=== PATIENT | female | born 1960 | race Caucasian/White ===

== ENCOUNTER 2017-06-15 15:54 | Emergency (ER) | payer OTHER ==
[2017-06-15 16:01] VITALS: BP 154/92
--- NOTE | 2017-06-15 16:30 | UC ---
Abdominal Pain Female HPI - HPI Summary HPI Summary: Patient presents with complaints of one day onset dysuria, and abdominal pressure in the suprapubic area. She denies fever, chills, or flank pain. She states the symptoms came on suddenly this morning. - History of Current Complaint Chief Complaint: UCGU Stated Complaint: UTI Time Seen by Provider: 06/15/17 15:58 Hx Obtained From: Patient ?: No Onset/Duration: Sudden Onset Timing: Constant Severity Initially: Mild Severity Currently: Mild Location: Suprapubic Radiates: No Character: Cramping Aggravating Factor(s): Other: - urination Alleviating Factor(s): Nothing Associated Signs and Symptoms: Positive: Negative - Risk Factors Ectopic Risk Factor: Negative Allergies/Adverse Reactions: Allergies Allergy/AdvReac Type Severity Reaction Status Date / Time No Known Allergies Allergy Verified 06/15/17 15:57 PMH/Surg Hx/FS Hx/Imm Hx Previously Healthy: Yes - Surgical History Surgical History: Yes Surgery Procedure, Year, and Place: total hysterectomy; 2 c-sections - Family History Known Family History: Positive: Cardiac Disease, Hypertension, Other - dementia rheumatoid arthritis - Social History Occupation: Employed Full-time Lives: Alone Alcohol Use: Rare Substance Use Type: None Smoking Status (MU): Never Smoked Tobacco Review of Systems Genitourinary: Dysuria, Frequency, Urgency All Other Systems Reviewed And Are Negative: Yes Physical Exam Triage Information Reviewed: Yes Appearance: Well-Appearing Vital Signs: Initial Vital Signs Temp 98 F 06/15/17 15:58 Pulse 94 06/15/17 15:58 Resp 20 06/15/17 15:58 BP 154/92 06/15/17 15:58 Pulse Ox 99 06/15/17 15:58 Vital Signs Reviewed: Yes Eye Exam: Normal ENT Exam: Normal Neck exam: Normal Respiratory Exam: Normal Cardiovascular Exam: Normal Abdominal Exam: Normal Skin Exam: Normal Abd Pain Female Course/Dx - Course Course Of Treatment: Patient presents with complaints of dysuria, ua was positive for infection. she was given rx for macrobid and pyridium. At the time of discharge she had a nontoxic appearance, normal vs, and was afebile. - Differential Dx/Diagnosis Differential Diagnosis: Urinary Tract Infection Provider Diagnoses: uti Discharge - Discharge Plan Condition: Stable Disposition: HOME Prescriptions: Nitrofurantoin Monohyd Macro [Macrobid] 100 mg PO BID #20 cap Phenazopyridine 200 mg (NF) [Pyridium 200 MG tab *] 200 mg PO TID PRN #6 tab PRN Reason: dysuria Patient Education Materials: Phenazopyridine (By mouth), Urinary Tract Infection in Women (ED) Referrals: Kelsi Nielsen MD [Primary Care Provider] -
== END 2017-06-15 16:30 | disposition home or self-care (01) ==
LOC: UCEAST 15:54
DX: N39.0 Urinary tract infection, site not specified (principal); B96.20 Unspecified Escherichia coli [E. coli] as the cause of diseases classified elsewhere; Z90.710 Acquired absence of both cervix and uterus
CPT/HCPCS: 81003; 87077; 87086; 87186; 99212; G0463

== ENCOUNTER 2017-09-01 09:24 | Emergency (ER) | payer OTHER ==
[2017-09-01 10:09] VITALS: BP 144/80
--- NOTE | 2017-09-01 10:13 | UC ---
Respiratory Complaint HPI - HPI Summary HPI Summary: Pt presents with sinus congestion and cough that started 5 days ago. Today started with wheezing. She tells me that about 5 days ago she developed sinus congestion/pain/pressure and a dry cough. She took OTC mucinex without relief. Today she began to feel a wheeze in her chest with she coughs or takes a deep breath. She says the cold makes her symptoms worse. Denies fever, chills, SOB, chest pain, abdominal pain, N/V/D/C - History of Current Complaint Chief Complaint: UCRespiratory Stated Complaint: UPPER RESPIRATORY Time Seen by Provider: 09/01/17 09:58 Hx Obtained From: Patient Onset/Duration: Gradual Onset Timing: Constant Severity Initially: Mild Severity Currently: Moderate Character: Cough: Nonproductive Aggravating Factors: Deep Breaths Associated Signs And Symptoms: Positive: Negative - Allergies/Home Medications Allergies/Adverse Reactions: Allergies Allergy/AdvReac Type Severity Reaction Status Date / Time No Known Allergies Allergy Verified 09/01/17 10:09 Home Medications: Home Medications Dextromethorphan-Guaifenesin [Mucinex Fast-Max Dm Max 20-400 mg/20Ml] 1 tab PO Q6H PRN 09/01/17 [History Confirmed 09/01/17] Metoprolol Succinate [Metoprolol Succinate ER] 25 mg PO DAILY 09/01/17 [History Confirmed 09/01/17] PMH/Surg Hx/FS Hx/Imm Hx - Additional Past Medical History Additional PMH: Rheumatoid Arthritis Previously Healthy: Yes Cardiovascular History: Hypertension - Surgical History Surgical History: Yes Surgery Procedure, Year, and Place: total hysterectomy; 2 c-sections - Family History Known Family History: Positive: Cardiac Disease, Hypertension, Other - dementia rheumatoid arthritis - Social History Occupation: Employed Full-time Lives: With Family Alcohol Use: Occasionally Substance Use Type: None Smoking Status (MU): Never Smoked Tobacco Review of Systems Constitutional: Negative Skin: Negative Eyes: Negative ENT: Nasal Discharge, Sinus Congestion, Sinus Pain/Tenderness Respiratory: Cough Cardiovascular: Negative Gastrointestinal: Negative Neurological: Negative Psychological: Negative All Other Systems Reviewed And Are Negative: Yes Physical Exam Triage Information Reviewed: Yes Appearance: Well-Appearing, Well-Nourished Vital Signs: Initial Vital Signs Temp 98.4 F 09/01/17 10:03 Pulse 99 09/01/17 10:03 Resp 18 09/01/17 10:03 BP 144/80 09/01/17 10:03 Pulse Ox 100 09/01/17 10:03 Vital Signs Reviewed: Yes Eyes: Positive: Conjunctiva Clear. Negative: Conjunctiva Inflamed, Discharge ENT: Positive: Hearing grossly normal, Pharynx normal, Nasal congestion, Nasal drainage, TMs normal, Sinus tenderness, Uvula midline. Negative: Pharyngeal erythema, TM bulging, TM dull, TM red, Tonsillar swelling, Tonsillar exudate Neck: Positive: Supple, Nontender, No Lymphadenopathy Respiratory: Positive: Chest non-tender, No respiratory distress, No accessory muscle use, Wheezing - Throughout. Negative: Crackles, Rhonchi Cardiovascular: Positive: RRR, No Murmur, Pulses Normal Neurological: Positive: Alert Psychological: Positive: Age Appropriate Behavior Skin: Negative: rashes UC Diagnostic Evaluation - Laboratory O2 Sat by Pulse Oximetry: 100 Respiratory Course/Dx - Course Course Of Treatment: Sinusitis - Azithromycin. Bronchitis - Albuterol - Differential Dx/Diagnosis Differential Diagnosis/HQI/PQRI: Asthma, Bronchitis, CHF, Lower Resp Infection, Sinusitis Provider Diagnoses: Sinusitis. Bronchitis Discharge - Discharge Plan Condition: Stable Disposition: HOME Prescriptions: Albuterol HFA INHALER* [Ventolin HFA Inhaler*] 1 - 2 puff INH Q6H PRN #1 mdi PRN Reason: Cough Azithromycin TAB* [Zithromax TAB (Z-DENA) 250 mg #6 tabs] 2 tab PO .TODAY, THEN 1 DAILY #1 dena Patient Education Materials: Sinusitis (ED), Acute Bronchitis (ED) Forms: *Work Release Referrals: Kelsi Nielsen MD [Primary Care Provider] - Additional Instructions: If you develop a fever, SOB, chest pain, new or worsening symptoms - please call your PCP or go to the ED. Your blood pressure was high at todays visit. Please see your primary provider within 4 weeks for recheck and re-evaluation.
== END 2017-09-01 10:32 | disposition home or self-care (01) ==
LOC: UCCORT 09:24
DX: J32.9 Chronic sinusitis, unspecified (principal); J40 Bronchitis, not specified as acute or chronic; I10 Essential (primary) hypertension; M06.9 Rheumatoid arthritis, unspecified
CPT/HCPCS: 99212; G0463

== ENCOUNTER 2018-12-19 16:56 | Emergency (ER) | payer OTHER ==
--- NOTE | 2018-12-19 17:18 | UC ---
Throat Pain/Nasal [place] HPI - HPI Summary HPI Summary: 58-year-old woman comes in with upper respiratory tract infection symptoms for 2 -3 days. Patient has a runny nose. There is some yellow rhinorrhea. No wheezing or chest congestion. Patient is not tried any zhgh-vme-lcdxics medications. She's potentially immunocompromised due to her rheumatoid arthritis medications. - History of Current Complaint Chief Complaint: UCGeneralIllness Stated Complaint: SINUS COMPLAINT Time Seen by Provider: 12/19/18 17:01 Pain Intensity: 4 - Allergies/Home Medications Allergies/Adverse Reactions: Allergies Allergy/AdvReac Type Severity Reaction Status Date / Time No Known Allergies Allergy Verified 12/19/18 17:10 PMH/Surg Hx/FS Hx/Imm Hx Previously Healthy: Yes - RA Endocrine History: Hypothyroidism Cardiovascular History: Hypertension - Surgical History Surgical History: Yes Surgery Procedure, Year, and Place: total hysterectomy; 2 c-sections - Family History Known Family History: Positive: Cardiac Disease, Hypertension, Other - dementia rheumatoid arthritis - Social History Alcohol Use: Rare Substance Use Type: None Smoking Status (MU): Never Smoked Tobacco Review of Systems All Other Systems Reviewed And Are Negative: Yes Constitutional: Positive: Chills Skin: Positive: Negative Eyes: Positive: Negative ENT: Positive: Sore Throat, Nasal Discharge, Sinus Congestion Respiratory: Positive: Negative Cardiovascular: Positive: Negative Gastrointestinal: Positive: Negative Motor: Positive: Negative Neurovascular: Positive: Negative Musculoskeletal: Positive: Negative Neurological: Positive: Negative Psychological: Positive: Negative Is Patient Immunocompromised?: Yes - RA medications Physical Exam Triage Information Reviewed: Yes Appearance: No Pain Distress, Well-Nourished, Ill-Appearing - mild Vital Signs: Initial Vital Signs Temp 97.2 F 12/19/18 17:03 Pulse 99 12/19/18 17:03 Resp 20 12/19/18 17:03 BP 000/00 12/19/18 17:03 Pulse Ox 95 12/19/18 17:03 Vital Signs Reviewed: Yes Eye Exam: Normal Eyes: Positive: Conjunctiva Clear ENT: Positive: Pharyngeal erythema, Nasal congestion, Nasal drainage, TMs normal Neck exam: Normal Neck: Positive: Supple Respiratory: Positive: Lungs clear, Normal breath sounds, No respiratory distress Cardiovascular: Positive: RRR Musculoskeletal Exam: Normal Musculoskeletal: Positive: Strength Intact, ROM Intact Neurological Exam: Normal Neurological: Positive: Alert, Muscle Tone Normal Psychological Exam: Normal Psychological: Positive: Age Appropriate Behavior Skin Exam: Normal Throat Pain/Nasal Course/Dx - Course Course Of Treatment: The cause of the patient potentially being immunocompromised because of her rheumatoid arthritis medications the patient prefers to be on antibiotic at this time. - Differential Dx/Diagnosis Provider Diagnosis: Upper respiratory infection Discharge - Sign-Out/Discharge Documenting (check all that apply): Patient Departure All imaging exams completed and their final reports reviewed: No Studies - Discharge Plan Condition: Stable Disposition: HOME Prescriptions: Azithromyxin DENA (NF) [Z-Dena (Zithromax) 250 mg tabs #6] 2 tab PO .TODAY, THEN 1 DAILY #6 tab Patient Education Materials: Upper Respiratory Infection (ED) Referrals: Kelsi Nielsen MD [Primary Care Provider] - Additional Instructions: FOLLOW UP WITH YOUR DOCTOR IF NOT COMPLETELY IMPROVED. GET RECHECKED FOR ANY WORSENING OF YOUR CONDITION OR QUESTIONS OR CONCERNS. - Billing Disposition and Condition Condition: STABLE Disposition: Home
[2018-12-19 17:29] VITALS: BP 162/88
== END 2018-12-19 17:32 | disposition home or self-care (01) ==
LOC: UCEAST 16:56
DX: J06.9 Acute upper respiratory infection, unspecified (principal); I10 Essential (primary) hypertension
CPT/HCPCS: 99212; G0463

== ENCOUNTER 2019-06-16 07:16 | Emergency (ER) | payer OTHER ==
--- OUTSIDE RECORDS SUMMARY | 2019-06-16 07:21 | XMS REPORT | Continuity of Care Document ---
:1960 External Reference #:[id number] Author Name Iesha Gaffney NP Address [address] [facility] [place] [address] Care Team Providers Name Role Phone Kelsi Nielsen M.D. Care Team Information Certified Medical Biller Unavailable Kelsi Nielsen M.D. Primary Care Physician Unavailable Payers Date Identification Numbers Payment Provider Subscriber Effective: 2014 Policy Number: [id number] [facility] [employer] [employer] Number: [id number] [id number] PayID: [id number] [place] [address] Problems Active Problems Provider Date Rheumatoid arthritis Kelsi Nielsen M.D. Onset: 08/05/2015 Essential hypertension Kelsi Nielsen M.D. Onset: 08/11/2015 Type 2 diabetes mellitus Kelsi Nielsen M.D. Onset: 08/11/2015 Hypothyroidism Kelsi Nielsen M.D. Onset: 09/25/2016 Hyperlipidemia Kelsi Nielsen M.D. Onset: 09/25/2016 Family History Date Family Member(s) Observation Comments Father Alzheimer's Disease : (age 2008 Years) Father due to [place] Father Rheumatoid Arthritis Father Prostate Cancer Mother Diabetes Mellitus, II : (age 79 Years) Mother due to Liver Disease Children 2 Maternal Aunts Colon Cancer Social History Type Date Description Comments Sex Unknown Marital Status Legal Status: Lives With Daughter Lives With Spouse Diet Patient is on a diabetic diet Occupation [place] [employer] Tobacco Use Start: Unknown Never Smoked Cigarettes ETOH Use Occasional Tobacco Use Start: Unknown Nonsmoker Smoking Status Reviewed: 09/22/17 Nonsmoker Exercise Exercises regularly treadmill 3x week Type/Frequency Allergies, Adverse Reactions, Alerts Description No Known Drug Allergies Medications Active Medications SIG Qnty Indications Ordering Date Provider Metformin HCL ER start with 1 60tabs Iesha Hernadez 04/19/2019 500mg Tablets tab daily for 1 SHADY Gaffney ER 24HR week then 1 tab twice a day ongoing Blood Glucose Monitoring One unit for 1units E11.9 Sebastian AMarco A 03/20/2019 System lifetime Maureen Boswell W/Device Kit diagnosis of diabetes E11.9 Freestyle Insulinx Blood For lifetime 30units Sebastian A. 03/20/2019 Glucose Test Strips diagnosis of Maureen Boswell Strips diabetes E11.9 Freestyle Insulinx Blood Include test 30units Sebastian A. 03/20/2019 Glucose Monitoring System strips and Maureen Boswell lancets for use W/Device Kit once daily for lifetime diagnosis of diabetes, E11.9 Accu-Chek Multiclix For use once 102units Sebastian AMarco A 03/20/2019 Lancets daily for Maureen Boswell Misc lifetime diagnosis of E11.9 Freestyle Lancets For use once 30units Sebastian AMarco A 03/20/2019 Misc daily for Maureen Boswell lifetime diagnosis of diabetes E11.9 Freestyle Insulinx Blood For use once 30units Sebastian AMarco A 03/20/2019 Glucose Test Strips daily for Maureen Boswell Strips lifetime diagnosis of diabetes, E11.9 Metoprolol Succinate ER 1 by mouth 30tabs I10 Kelsi Nielsen, 06/14/2017 50mg every day M.D. Tablets ER 24HR Levothyroxine Sodium 1 by mouth 30tabs E03.9 Valerie Lee, 08/12/2015 75mcg every day [employer] Tablets Folic Acid 1 by mouth 30tabs Valerie Lee, 08/12/2015 1mg Tablets every day [employer] Methotrexate 5 tab by mouth Kelsi Loris, 08/12/2015 2.5mg Tablets every week M.D. Hydrochlorothiazide 1 by mouth 90tabs I10 Inés Castelan 25mg every day SHADY Hardy Tablets History Medications Synjardy XR Take 1 tablet 30tabs Kelsi Nielsen, 03/28/2019 - 12.5-1000mg Tablets daily. M.D. 04/19/2019 ER 24HR Qtern Patient will 30tabs Sebastian Boswell, 03/21/2019 - 10-5mg Tablets present M.D. 03/28/2019 savings coupon. Take 1 tablet daily. Anthonyga start 1 tablet 30tabs Sebastian Boswell, 03/20/2019 - 5mg Tablets in the morning M.D. 03/20/2019 daily. Kixiga Start one 30tabs E11.9 Sebastian Boswell, 03/20/2019 - 10mg Tablets tablet once M.D. 03/21/2019 daily in the morning. Metformin HCL take 2 tablet 90tabs E11.9 Valerie Rosa, 03/24/2018 - 500mg Tablets by mouth in [facility] 03/20/2019 the morning and 2 po in the evening Metformin HCL 1 by mouth 180tabs Lucas 09/25/2016 - 1000mg Tablets once a day [facility] 03/24/2018 Hydroxychloroquine 1 tab qd 90tabs [facility], 08/12/2015 - Sulfate M.D. 09/25/2016 200mg Tablets Atenolol 1 by mouth 90tabs [facility], 08/12/2015 - 50mg Tablets every day M.D. 06/14/2017 [facility] HCL [facility] - 500mg Tablets twice a day [facility] 09/25/2016 Immunizations CPT Code Status Date Vaccine Lot # [id number] Given 07/10/2018 Influenza Vac, Quadrivalent, [place] [id number] Given 09/21/2017 Pneumococcal Conjugate Vacc-13 [id number] Given 03/24/2016 Zostivax [id number] Given 08/12/2015 Tdap Tetanus, W Pertussis [id number] Vital Signs Date Vital Result Comment 04/19/2019 5:11pm BP Systolic 130 mmHg BP Diastolic 88 mmHg Heart Rate 90 /min Body Temperature 97.9 F Height 62.5 inches 5'2.50" Weight 209.00 lb BMI (Body Mass Index) 37.6 kg/m2 03/20/2019 9:34am BP Systolic 136 mmHg BP Diastolic 86 mmHg Heart Rate 96 /min Body Temperature 96.4 F Height 62.5 inches 5'2.50" Weight 216.00 lb BMI (Body Mass Index) 38.9 kg/m2 03/24/2018 9:42am BP Systolic 130 mmHg BP Diastolic 80 mmHg Heart Rate 76 /min Body Temperature 97.7 F Respiratory Rate 18 /min Height 62.5 inches 5'2.50" Weight 216.00 lb BMI (Body Mass Index) 38.9 kg/m2 09/22/2017 9:23am BP Systolic 126 mmHg BP Diastolic 80 mmHg Heart Rate 80 /min Body Temperature 98.2 F Respiratory Rate 16 /min Height 62.5 inches 5'2.50" Weight 211.00 lb BMI (Body Mass Index) 38.0 kg/m2 12/25/2016 8:53am BP Systolic 132 mmHg BP Diastolic 80 mmHg Heart Rate 72 /min Respiratory Rate 20 /min Height 62.5 inches 5'2.50" Weight 203.38 lb BMI (Body Mass Index) 36.6 kg/m2 09/25/2016 9:51am BP Systolic 140 mmHg BP Diastolic 90 mmHg Heart Rate 84 /min Body Temperature 97.7 F Height 62.5 inches 5'2.50" Weight 210.50 lb BMI (Body Mass Index) 37.9 kg/m2 02/04/2016 3:53pm BP Systolic 130 mmHg BP Diastolic 84 mmHg Heart Rate 88 /min Body Temperature 98.2 F Respiratory Rate 16 /min Height 62.5 inches 5'2.50" Weight 215.00 lb BMI (Body Mass Index) 38.7 kg/m2 08/12/2015 4:13pm BP Systolic 128 mmHg BP Diastolic 88 mmHg Heart Rate 88 /min Body Temperature 98.6 F Height 62.5 inches 5'2.50" Weight 216.00 lb BMI (Body Mass Index) 38.9 kg/m2 Results Test Date Facility Test Result H/L Range Note Laboratory test 03/20/2019 [facility] Medicine Glucose 214 mg/dL High 70-105 finding (607)- - Fingerstick (Fma) Hemoglobin A1c (Fma) 9.7 % High 4.1-5.7 Lipid Profile 03/20/2019 [facility](a) Cholesterol 228 mg/dL High 120-200 Triglycerides 192 mg/dL 30-200 HDL Cholesterol 56 mg/dL 30-85 LDL (Calculated) 134 CALC High 0-129 VLDL Cholesterol 38 mg/dL 0-50 HDL Risk Factor 4.1 CALC 0.0-4.4 Laboratory test finding 03/09/2019 [facility] Erythrocyte Sed Rate 36 mm/Hr High 0-29 1 Comp Metabolic Panel 03/09/2019 [facility] Sodium 137 mmol/L N 135-145 Potassium 3.8 mmol/L N 3.5-5.0 Chloride 99 mmol/L Low 101-111 Co2 Carbon Dioxide 32 mmol/L N 22-32 Anion Gap 6 mmol/L N 2-11 Calcium 9.7 mg/dL N 8.6-10.3 Albumin 4.0 g/dL N 3.2-5.2 Total Bilirubin 0.50 mg/dL N 0.2-1.0 Glucose 302 mg/dL High 70-100 Blood Urea Nitrogen 15 mg/dL N 6-24 Creatinine 0.69 mg/dL N 0.51-0.95 BUN/Creatinine Ratio 21.7 High 8-20 Total Protein 7.5 g/dL N 6.4-8.9 Globulin 3.5 g/dL N 2-4 Albumin/Globulin Ratio 1.1 N 1-3 Alkaline Phosphatase 84 U/L N 34-104 Alt 23 U/L N 7-52 Ast 21 U/L N 13-39 Egfr Non- 87.7 >60 Egfr 106.1 >60 2 CBC Auto Diff 03/09/2019 [facility] White Blood Count 9.6 10^3/uL N 3.5-10.8 Red Blood Count 4.78 10^6/uL N 3.70-4.87 Hemoglobin 14.8 g/dL N 12.0-16.0 Hematocrit 44 % N 35-47 Mean Corpuscular Volume 91 fL N 80-97 Mean Corpuscular Hemoglobin 31 pg N 27-31 Mean Corpuscular HGB Conc 34 g/dL N 31-36 Red Cell Distribution Width 14 % N 10-15 Platelet Count 205 10^3/uL N 150-450 Mean Platelet Volume 9.8 fL N 7.4-10.4 Abs Neutrophils 5.9 10^3/uL N 1.5-7.7 Abs Lymphocytes 2.1 10^3/uL N 1.0-4.8 Abs Monocytes 1.3 10^3/uL High 0-0.8 Abs Eosinophils 0.3 10^3/uL N 0-0.6 Abs Basophils 0.1 10^3/uL N 0-0.2 Abs Nucleated RBC 0.0 10^3/uL Granulocyte % 60.9 % Lymphocyte % 22.3 % Monocyte % 13.2 % Eosinophil % 2.9 % Basophil % 0.7 % Nucleated Red Blood Cells % 0.2 Laboratory test 03/09/2019 [facility] C Reactive Protein 22.57 mg/L High <8.01 3 finding Laboratory test 04/06/2018 [facility] C-Reactive 19.7 mg/L High 0.0-4.[address] Protein, [place] [address] (607)- - Laboratory test 04/06/2018 [facility] Sedimentation Rate 13mm finding (607)- - Comprehensive 04/06/2018 [facility](fma) Sodium 138 mEq/L 134-149 Metabolic Prof Potassium 3.6 mEq/L 3.6-5.5 Chloride 101 mEq/L 94-112 Carbon Dioxide 25 mEq/L 21-32 Glucose 161 mg/dL High 70-105 BUN 14 mg/dL 6-26 Creatinine 0.7 mg/dL 0.6-1.4 BUN/Creat Ratio 20.0 CALC 8.0-36.0 Calcium 9.4 mg/dL 8.6-10.2 Total Protein 8.3 g/dL 6.4-8.3 Albumin 4.4 g/dL 3.8-5.5 Globulin 3.9 g/dL 2.0-4.8 A/G Ratio 1.1 CALC 0.6-2.3 Alk. Phosphatase 71 U/L 30-110 Alt (SGPT) 32 U/L 7-35 Ast (Sgot) 33 U/L 5-34 Total Bilirubin 0.7 mg/dL 0.2-1.3 GFR Non- >60 ml/min/1.73m^ >=60 GFR >60 ml/min/1.73m^ >=60 CBC Electronic Fma 04/06/2018 [facility](fma) WBC 9.3 x10^3/UL 4.0- 10.0 RBC 4.87 x10^6/UL 3.93-6.00 HGB 15.0 g/dL 12.0-17.0 HCT 43 % 35-50 MCV 88.9 fL 80.0-95.0 MCH 30.8 pg 25.6-32.2 MCHC 34.6 g/dL 32.2-36.0 RDW-CV 13.1 % 11.6-14.4 PLT 202 x10^3/UL 163-400 MPV 11.8 fL 9.4-12.4 Della# 5.71 x10^3/UL 1.56-6.13 Lymph# 2.23 x10^3/UL 1.18-3.74 Gladwin# 1.08 x10^3/UL High 0.24-0.82 Eos # 0.2 x10^3/UL 0.0-0.5 Baso # 0.04 x10^3/UL 0.01-0.08 Della% 61.3 % 34.0-70.0 Lymph % 23.9 % 20.0-52.0 Gladwin% 11.6 % 5.0-12.0 Eos% 2.6 % 0.7-7.0 Baso% 0.4 % 0.1-1.2 Lipid Profile 12/07/2017 [facility](a) Cholesterol 225 mg/dL High 120-200 Triglycerides 189 mg/dL 30-200 HDL Cholesterol 61 mg/dL 30-85 LDL (Calculated) 126 CALC 0-129 VLDL Cholesterol 38 mg/dL 0-50 HDL Risk Factor 3.7 CALC 0.0-4.4 Laboratory test finding 12/07/2017 [facility](a) TSH 3.39 mIU/L 0.50-6.00 Free T4 1.52 ng/dL 0.75-1.54 CBC Electronic Fma 12/07/2017 [facility]) WBC 7.6 x10^3/UL 4.0- 10.0 RBC 5.02 x10^6/UL 3.93-6.00 HGB 15.3 g/dL 12.0-17.0 HCT 45 % 35-50 MCV 90.0 fL 80.0-95.0 MCH 30.5 pg 25.6-32.2 MCHC 33.8 g/dL 32.2-36.0 RDW-CV 13.0 % 11.6-14.4 PLT 208 x10^3/UL 163-400 MPV 10.8 fL 9.4-12.4 Della# 5.01 x10^3/UL 1.56-6.13 Lymph# 1.50 x10^3/UL 1.18-3.74 Gladwin# 0.85 x10^3/UL High 0.24-0.82 Eos # 0.2 x10^3/UL 0.0-0.5 Baso # 0.03 x10^3/UL 0.01-0.08 Della% 65.9 % 34.0-70.0 Lymph % 19.7 % Low 20.0-52.0 Gladwin% 11.2 % 5.0-12.0 Eos% 2.5 % 0.7-7.0 Baso% 0.4 % 0.1-1.2 Laboratory test 12/07/2017 [facility] C-Reactive 19.9 mg/L High 0.0-4.9 finding [address] [facility] Protein, [place] [address] (607)- - Laboratory test 12/07/2017 [facility] Hemoglobin A1c 7.5 % High 4.1- 5.7 finding (607)- - (Fma) Microalb, Random (Fma/CMC/CTX) 18.9 mg/L 0.5-37 Ua - Micro (Fma) 12/07/2017 [facility] Appearance CLEAR (607)- - Color YELLOW Glucose, Urine (Fma/CMC/CTX) NEG Bilirubin NEG Ketones NEG SP Grav >=1.030 Blood NEG PH 6.0 Protein NEG Urobil 0.2 Nitrite NEG Leukocytes (Fma/CMC/Centrex) MOD # Hyaline - /Lpf Granular - /Lpf WBC (Fma,Centrex) 10-15 # RBC 0-2 # Mucus (Fma/CBC/Centrex) - /Lpf Epith RARE /Lpf # Bacteria 1+ /Hpf # Amorphous (Fma/CMC/Centrex) - /Lpf Crystals, Fluid (Fma/CMC/CTX) - Z#Comments - Laboratory test 12/07/2017 [facility] Sedimentation Rate 7mm finding (607)- - Comprehensive 12/07/2017 [facility](a) Sodium 144 mEq/L 134-14 Metabolic Prof 9 Potassium 3.7 mEq/L 3.6-5.5 Chloride 99 mEq/L 94-112 Carbon Dioxide 30 mEq/L 21-32 Glucose 177 mg/dL High 70-105 BUN 16 mg/dL 6-26 Creatinine 0.7 mg/dL 0.6-1.4 BUN/Creat Ratio 22.9 CALC 8.0-36.0 Calcium 9.9 mg/dL 8.6-10.2 Total Protein 7.8 g/dL 6.4-8.3 Albumin 4.4 g/dL 3.8-5.5 Globulin 3.4 g/dL 2.0-4.8 A/G Ratio 1.3 CALC 0.6-2.3 Alk. Phosphatase 73 U/L 30-110 Alt (SGPT) 27 U/L 7-35 Ast (Sgot) 22 U/L 5-34 Total Bilirubin 0.6 mg/dL 0.2-1.3 GFR Non- >60 ml/min/1.73m^ >=60 GFR >60 ml/min/1.73m^ >=60 Laboratory test 09/15/2017 [facility] Hemoglobin A1c 6.9 % High 4.1- 5.7 finding (607)- - (Fma) Comprehensive 09/15/2017 [facility]) Sodium 143 mEq/L 134-149 Metabolic Prof Potassium 4.1 mEq/L 3.6-5.5 Chloride 105 mEq/L 94-112 Carbon Dioxide 27 mEq/L 21-32 Glucose 163 mg/dL High 70-105 5 BUN 17 mg/dL 6-26 Creatinine 0.7 mg/dL 0.6-1.4 BUN/Creat Ratio 24.3 CALC 8.0-36.0 Calcium 9.4 mg/dL 8.6-10.2 Total Protein 7.4 g/dL 6.4-8.3 Albumin 4.4 g/dL 3.8-5.5 Globulin 3.0 g/dL 2.0-4.8 A/G Ratio 1.5 CALC 0.6-2.3 Alk. Phosphatase 66 U/L 30-110 Alt (SGPT) 27 U/L 7-35 Ast (Sgot) 23 U/L 5-34 Total Bilirubin 0.5 mg/dL 0.2-1.3 GFR Non- >60 ml/min/1.73m^ >=60 GFR >60 ml/min/1.73m^ >=60 Lipid Profile 09/15/2017 [facility](a) Cholesterol 226 mg/dL High 120-200 Triglycerides 184 mg/dL 30-200 HDL Cholesterol 65 mg/dL 30-85 LDL (Calculated) 124 CALC 0-129 VLDL Cholesterol 37 mg/dL 0-50 HDL Risk Factor 3.5 CALC 0.0-4.4 Complete Blood Count 09/15/2017 [facility](a) WBC 6.6 x10^3/UL 3.6 -9.6 RBC 4.82 x10^6/UL 3.90-5.70 HGB 14.8 g/dL 12.1-17.2 HCT 44 % 36-50 MCV 92.0 fL 82.2-97.4 MCH 30.7 pg 27.6-33.3 MCHC 33.4 g/dL 33.0-35.5 RDW 14.8 % High 11.6-13.7 PLT 212 x10^3/UL 150-400 MPV 7.9 fL 7.4-10.4 Gran # 4.3 x10^3/UL 1.5-7.2 Lymph# 1.8 x10^3/UL 0.7-4.9 Gladwin# 0.5 x10^3/UL 0.1-0.9 Gran % 63.9 % 42.2-75.2 Lymph % 28.0 % 20.5-51.1 Gladwin% 8.1 % 1.7-9.3 Laboratory test finding 09/15/2017 [facility]) TSH 2.38 mIU/L 0.50-6.00 Comprehensive Metabolic 06/16/2017 [facility]) Sodium 145 mEq/L 134-149 Prof Potassium 3.8 mEq/L 3.6-5.5 Chloride 101 mEq/L 94-112 Carbon Dioxide 25 mEq/L 21-32 Glucose 110 mg/dL High 70-105 BUN 13 mg/dL 6-26 Creatinine 0.6 mg/dL 0.6-1.4 BUN/Creat Ratio 21.7 CALC 8.0-36.0 Calcium 9.6 mg/dL 8.6-10.2 Total Protein 8.2 g/dL 6.4-8.3 Albumin 4.4 g/dL 3.8-5.5 Globulin 3.8 g/dL 2.0-4.8 A/G Ratio 1.2 CALC 0.6-2.3 Alk. Phosphatase 67 U/L 30-110 Alt (SGPT) 28 U/L 7-35 Ast (Sgot) 25 U/L 5-34 Total Bilirubin 0.5 mg/dL 0.2-1.3 GFR Non- >60 ml/min/1.73m^ >=60 GFR >60 ml/min/1.73m^ >=60 Complete Blood Count 06/16/2017 [facility](fma) WBC 9.9 x10^3/UL High 3.6-9.6 6 RBC 4.73 x10^6/UL 3.90-5.70 HGB 14.5 g/dL 12.1-17.2 HCT 43 % 36-50 MCV 91.0 fL 82.2-97.4 MCH 30.6 pg 27.6-33.3 MCHC 33.7 g/dL 33.0-35.5 RDW 13.8 % High 11.6-13.7 PLT 246 x10^3/UL 150-400 MPV 8.1 fL 7.4-10.4 Gran # 6.1 x10^3/UL 1.5-7.2 Lymph# 2.9 x10^3/UL 0.7-4.9 Gladwin# 0.9 x10^3/UL 0.1-0.9 Gran % 60.1 % 42.2-75.2 Lymph % 29.9 % 20.5-51.1 Gladwin% 10.0 % High 1.7-9.3 Laboratory test 06/16/2017 [facility] C-Reactive 21.9 mg/L High 0.0-4.9 finding [address] [employer] Protein, [place] [address] (607)- - Laboratory test 06/16/2017 [facility] Sedimentation 21 MM finding (607)- - Rate Laboratory test 06/15/2017 [facility] Urine Culture SEE 7, 8 finding And RESULT Sensitivities BELOW Laboratory test 03/11/2017 [facility] C-Reactive 20.1 mg/L High 0.0-4.9 9 finding [address] [employer] Protein, [place] [address] (605)- - Comprehensive 03/11/2017 [facility](fma) Sodium 139 mEq/L 134-149 Metabolic Prof Potassium 3.6 mEq/L 3.6-5.5 Chloride 97 mEq/L 94-112 Carbon Dioxide 27 mEq/L 21-32 Glucose 116 mg/dL High 70-105 10 BUN 17 mg/dL 6-26 Creatinine 0.7 mg/dL 0.6-1.4 BUN/Creat Ratio 24.3 CALC 8.0-36.0 Calcium 9.1 mg/dL 8.6-10.2 Total Protein 7.2 g/dL 6.4-8.3 Albumin 4.1 g/dL 3.8-5.5 Globulin 3.1 g/dL 2.0-4.8 A/G Ratio 1.3 CALC 0.6-2.3 Alk. Phosphatase 65 U/L 30-110 Alt (SGPT) 24 U/L 7-35 Ast (Sgot) 21 U/L 5-34 Total Bilirubin 0.4 mg/dL 0.2-1.3 GFR Non- >60 ml/min/1.73m^ >=60 GFR >60 ml/min/1.73m^ >=60 Complete Blood Count 03/11/2017 [facility](a) WBC 10.0 x10^3/UL High 3.6-9.6 RBC 4.60 x10^6/UL 3.90-5.70 HGB 14.2 g/dL 12.1-17.2 HCT 43 % 36-50 MCV 92.0 fL 82.2-97.4 MCH 31.0 pg 27.6-33.3 MCHC 33.6 g/dL 33.0-35.5 RDW 14.6 % High 11.6-13.7 PLT 237 x10^3/UL 150-400 MPV 8.2 fL 7.4-10.4 Gran # 7.1 x10^3/UL 1.5-7.2 Lymph# 2.3 x10^3/UL 0.7-4.9 Gladwin# 0.6 x10^3/UL 0.1-0.9 Gran % 70.4 % 42.2-75.2 Lymph % 23.0 % 20.5-51.1 Gladwin% 6.6 % 1.7-9.3 Laboratory test 03/11/2017 [facility] Hemoglobin A1c 6.2 % High 4.1- 5.7 finding (607)- - (Fma) Sedimentation Rate 23 mm # Comprehensive Metabolic 12/14/2016 [facility](a) Sodium 141 mEq/L 134-149 Prof Potassium 4.5 mEq/L 3.6-5.5 Chloride 102 mEq/L 94-112 Carbon Dioxide 27 mEq/L 21-32 Glucose 167 mg/dL High 70-105 11 BUN 14 mg/dL 6-26 Creatinine 0.7 mg/dL 0.6-1.4 BUN/Creat Ratio 20.0 CALC 8.0-36.0 Calcium 9.0 mg/dL 8.6-10.2 Total Protein 7.5 g/dL 6.4-8.3 Albumin 4.1 g/dL 3.8-5.5 Globulin 3.4 g/dL 2.0-4.8 A/G Ratio 1.2 CALC 0.6-2.3 Alk. Phosphatase 73 U/L 30-110 Alt (SGPT) 33 U/L 7-35 Ast (Sgot) 31 U/L 5-34 Total Bilirubin 0.7 mg/dL 0.2-1.3 GFR Non- >60 ml/min/1.73m^ >=60 GFR >60 ml/min/1.73m^ >=60 Lipid Profile 12/14/2016 [facility](a) Cholesterol 232 mg/dL High 120-200 Triglycerides 200 mg/dL 30-200 HDL Cholesterol 53 mg/dL 30-85 LDL (Calculated) 139 CALC High 0-129 VLDL Cholesterol 40 mg/dL 0-50 HDL Risk Factor 4.4 CALC 0.0-4.4 Laboratory test 12/14/2016 [facility](a) Free T4 1.14 ng/dL 0.75- 1.54 finding TSH 2.65 mIU/L 0.50-6.00 Laboratory test 12/14/2016 [facility] Hemoglobin A1c 6.9 % High 4.1- 5.7 finding (607)- - (Fma) Complete Blood 09/22/2016 [facility](a) WBC 8.5 3.6-9.6 Count x10^3/UL RBC 4.81 x10^6/UL 3.90-5.70 HGB 14.8 g/dL 12.1-17.2 HCT 44 % 36-50 MCV 92.0 fL 82.2-97.4 MCH 30.7 pg 27.6-33.3 MCHC 33.4 g/dL 33.0-35.5 RDW 14.9 % High 11.6-13.7 PLT 220 x10^3/UL 150-400 MPV 7.7 fL 7.4-10.4 Gran # 5.9 x10^3/UL 1.5-7.2 Lymph# 2.2 x10^3/UL 0.7-4.9 Gladwin# 0.4 x10^3/UL 0.1-0.9 Gran % 67.4 % 42.2-75.2 Lymph % 26.8 % 20.5-51.1 Gladwin% 5.8 % 1.7-9.3 Comprehensive Metabolic 09/22/2016 [facility](fma) Sodium 141 mEq/L 134-149 Prof Potassium 4.4 mEq/L 3.6-5.5 Chloride 96 mEq/L 94-112 Carbon Dioxide 25 mEq/L 21-32 Glucose 149 mg/dL High 70-105 BUN 16 mg/dL 6-26 Creatinine 0.7 mg/dL 0.6-1.4 BUN/Creat Ratio 22.9 CALC 8.0-36.0 Calcium 9.7 mg/dL 8.6-10.2 Total Protein 7.9 g/dL 6.4-8.3 Albumin 4.4 g/dL 3.8-5.5 Globulin 3.5 g/dL 2.0-4.8 A/G Ratio 1.3 CALC 0.6-2.3 Alk. Phosphatase 81 U/L 30-110 Alt (SGPT) 30 U/L 7-35 Ast (Sgot) 27 U/L 5-34 Total Bilirubin 0.7 mg/dL 0.2-1.3 GFR Non- >60 ml/min/1.73m^ >=60 GFR >60 ml/min/1.73m^ >=60 Lipid Profile 09/22/2016 [facility](fma) Cholesterol 264 mg/dL High 120-200 Triglycerides 242 mg/dL High 30-200 HDL Cholesterol 54 mg/dL 30-85 LDL (Calculated) 162 CALC High 0-129 VLDL Cholesterol 48 mg/dL 0-50 HDL Risk Factor 4.9 CALC High 0.0-4.4 Laboratory test 09/22/2016 [facility] Microalb, Random 14.6 mg/L 0.5-37 finding (607)- - (Fma/CMC/CTX) Ua - Micro (Fma) 09/22/2016 [facility] Appearance CLEAR (607)- - Color YELLOW Glucose, Urine (Fma/CMC/CTX) NEG Bilirubin NEG Ketones NEG SP Grav 1.020 Blood NEG PH 6.5 Protein NEG Urobil 0.2 Nitrite NEG Leukocytes (Fma/CMC/[facility]) MOD # Hyaline - /Lpf Granular - /Lpf WBC (Fma,Centrex) >50 # RBC 1-2 # Mucus - /Lpf Epith RARE /Lpf # Bacteria 2+ /Hpf # Amorphous - /Lpf Crystals, Fluid (Fma/CMC/CTX) - Z#Comments - Laboratory test 09/22/2016 [facility] Hemoglobin A1c 7.4 % % High 4.1-5.7 finding (607)- - (Fma) Laboratory test 09/22/2016 [facility](a) TSH 1.90 0.50-6.00 12 finding mIU/L Lipid Panel-ALL 09/23/2015 [facility] Triglycerides 203 N [employer] mg/dL Cholesterol 201 mg/dL N 14 HDL Cholesterol 49.2 mg/dL N 15 LDL Cholesterol 111 mg/dL N 16 CBC Electronic-ALL Lab 09/23/2015 [facility] White Blood Count 7.1 10^3/uL N 3.5 -10.8 Compani Red Blood Count 4.74 10^6/uL N 4.0-5.4 Hemoglobin 14.5 g/dL N 12.0-16.0 Hematocrit 44 % N 35-47 Mean Corpuscular Volume 93 fL N 80-97 Mean Corpuscular Hemoglobin 31 pg N 27-31 Mean Corpuscular HGB Conc 33 g/dL N 31-36 Red Cell Distribution Width 14 % N 10.5-15 Platelet Count 198 10^3/uL N 150-450 Mean Platelet Volume 10 um3 N 7.4-10.4 Abs Neutrophils 4.3 10^3/uL N 1.5-7.7 Abs Lymphocytes 1.8 10^3/uL N 1.0-4.8 Abs Monocytes 0.8 10^3/uL N 0-0.8 Abs Eosinophils 0.2 10^3/uL N 0-0.6 Abs Basophils 0.1 10^3/uL N 0-0.2 Abs Nucleated RBC 0 10^3/uL N Granulocyte % 60.5 % N 38-83 Lymphocyte % 25.1 % N 25-47 Monocyte % 11.1 % High 1-9 Eosinophil % 2.6 % N 0-6 Basophil % 0.7 % N 0-2 Nucleated Red Blood Cells % 0 N Laboratory test finding 09/23/2015 [facility] TSH (Thyroid Stim 2.54 ?IU/mL N 0.34-5.60 Horm) Hemoglobin A1c (Glyco HGB) 6.9 % High Less than 6.0 17 Urine Microalbumin Random 09/23/2015 [facility] Ur Microalbumin (mg/L) 6.0 mg/L N Urine Creatinine 130.06 mg/dL N Urine Microalbumin/Creatinine 4.6 ug/mg N <31 Urinalysis Profile 09/23/2015 [facility] Urine Color Yellow N Urine Appearance Cloudy N Urine Specific [place] 1.019 N 1.010-1.030 Urine pH 5.0 N 5-9 Urine Urobilinogen Negative N Negative Urine Ketones Negative N Negative Urine Protein Negative N Negative Urine Leukocytes 1+ Abnormal Negative Urine Blood Negative N Negative Urine Nitrite Negative N Negative Urine Bilirubin Negative N Negative Urine Glucose Negative N Negative Urine White Blood Cell 2+(11-20/hpf) Abnormal Absent Urine Red Blood Cell Trace(0-2/hpf) N Absent Urine Bacteria Absent N Absent Urine Squamous Epithelial Cell Present Abnormal Absent Laboratory test 09/23/2015 [facility] Urine Culture And SEE RESULT 18 finding Sensitivities BELOW Comp Metabolic-ALL 09/23/2015 [facility] Sodium 138 mmol/L N 133-145 Lab [facility] Potassium 4.1 mmol/L N 3.5-5.0 Chloride 104 mmol/L N 101-111 Co2 Carbon Dioxide 26 mmol/L N 22-32 Anion Gap 8 mmol/L N 2-11 Glucose 124 mg/dL High 70-100 Blood Urea Nitrogen 18 mg/dL N 6-24 Creatinine 0.69 mg/dL N 0.51-0.95 BUN/Creatinine Ratio 26.1 High 8-20 Calcium 9.3 mg/dL N 8.6-10.3 Total Protein 7.4 g/dL N 6.4-8.9 Albumin 4.1 g/dL N 3.2-5.2 Globulin 3.3 g/dL N 2-4 Albumin/Globulin Ratio 1.2 N 1-3 Total Bilirubin 0.50 mg/dL N 0.2-1.0 Alkaline Phosphatase 66 U/L N 34-104 Alt 28 U/L N 7-52 Ast 23 U/L N 13-39 Egfr Non- 89.0 N >60 Egfr 114.5 N >60 19 1 standing orders q 8 weeks and please check 2 days before her visit 2 Because ethnic data is not always readily available, this report includes an eGFR for both -Americans and non- Americans. The National Kidney Disease Education Program (NKDEP) does not endorse the use of the MDRD equation for patients that are not between the ages of 18 and 70, are , have extremes of body size, muscle mass, or nutritional status, or are non- or non-. According to the National Kidney Foundation, irrespective of diagnosis, the stage of the disease is based on the level of kidney function: Stage Description GFR(mL/min/1.73 m(2)) 1 Kidney damage with normal or decreased GFR 90 2 Kidney damage with mild decrease in GFR 60-89 3 Moderate decrease in GFR 30-59 4 Severe decrease in GFR 15-29 5 Kidney failure <15 (or dialysis) 3 standing orders q 8 weeks and please check 2 days before her visit 4 1 sst 5 RESULTS VERIFIED BY REPEAT ANALYSIS 6 consistent w/ previous results 7 [id number] SEE RESULT BELOW Name: KHANG WHELAN : [address]: Harry Lamb MD Acct: [id number] Unit: [id number] AGE: 57 Location: [facility] Re06/15/17 SEX: F Status: DEP ER SPEC: [id number] TASHIA: 06/15/17-[address]: Abby Muñoz NP REQ: [id number] RECD: 06/15/17 STATUS: RES OTHR DR: Kelsi Nielsen MD [facility] _ SOURCE: URINE SPDESC: ORDERED: Urine Culture COMMENTS: [id number] Procedure Result Reported Site Urine Culture Preliminary 06/16/17- 1441 ML Organism 1 ESCHERICHIA COLI [place] >100,000 (Many) CFU/ML * ML - MAIN LAB ([facility]) . END OF REPORT * ML = Testing performed at Main Lab DEPARTMENT OF PATHOLOGY, [address] [place] [address] Naga Sanders M.D. Director [facility] # [id number] consistent w/ previous results 11 consistent w/ previous results 12 FASTING 13 Desirable <150 Borderline high 150-199 High 200-499 Very High >500 14 Desirable <200 Borderline high 200-239 High >239 15 Low <40 Desirable: 40-60 High: >60 16 Desirable: <100 mg/dL Near Optimal: 100-129 mg/dL Borderline High: 130-159 mg/dL High: 160-189 mg/dL Very High: >189 mg/dL 17 Therapeutic target for the treatment of diabetes Mellitus patients is <7% HBA1C, and in selective patients <6.0%.Please refer to [place] [employer] Diabetic care guidelines for further information. 18 SEE RESULT BELOW Name: KHANG WHELAN : [address]: Kelsi Nielsen MD Acct: [id number] Unit: [id number] AGE: 55 Location: [facility] Re09/23/15 SEX: F Status: REG REF SPEC: [id number] TASHIA: 09/23/[address] [facility] [address]: Kelsi Nielsen MD REQ: [id number] RECD: 09/23/15 STATUS: LEEANNE FLORES DR: Rodolfo Hoffman MD _ SOURCE: URINE SPDESC: ORDERED: Urine Culture Procedure Result Reported Site Urine Culture Final 09/24/15- 1306 ML Organism 1 NORMAL SAADIA [place] Count 1-10,000 (Few) CFU/ML * ML - MAIN LAB ([facility]) . END OF REPORT * ML = Testing performed at Main Lab DEPARTMENT OF PATHOLOGY, [address] [place] [address] Naga Sanders M.D. Director [facility] # [id number] 19 Because ethnic data is not always readily available, this report includes an eGFR for both -Americans and non- Americans. The National Kidney Disease Education Program (NKDEP) does not endorse the use of the MDRD equation for patients that are not between the ages of 18 and 70, are , have extremes of body size, muscle mass, or nutritional status, or are non- or non-. According to the National Kidney Foundation, irrespective of diagnosis, the stage of the disease is based on the level of kidney function: Stage Description GFR(mL/min/1.73 m(2)) 1 Kidney damage with normal or decreased GFR 90 2 Kidney damage with mild decrease in GFR 60-89 3 Moderate decrease in GFR 30-59 4 Severe decrease in GFR 15-29 5 Kidney failure <15 (or dialysis) Procedures Date Code Description Status 09/30/2018 [id number] Mammogram Completed 09/29/2017 [id number] Mammogram Completed 06/11/2017 [id number] Colonoscopy Completed 09/28/2016 [id number] Mammogram Completed 09/26/2015 [id number] Mammogram Completed Encounters Type Date Location Provider Dx Diagnosis Office Visit 03/20/2019 [facility] Office Odette Farris, E11.9 Type 2 diabetes 9:30a PA mellitus without complications Office Visit 03/24/2018 [facility] Office Valerie Lee, E11.9 Type 2 diabetes 9:45a [employer] mellitus without complications E03.9 Hypothyroidism, unspecified I10 Essential (primary) hypertension Office Visit 12/25/2016 9:00a [facility] Office Kelsi Nielsen, M06.9 Rheumatoid M.D. arthritis, unspecified E11.9 Type 2 diabetes mellitus without complications I10 Essential (primary) hypertension E03.9 Hypothyroidism, unspecified Office Visit 09/25/2016 10:00a [facility] Office Kelsi Nielsen, E11.9 Type 2 diabetes M.D. mellitus without complications I10 Essential (primary) hypertension M06.9 Rheumatoid arthritis, unspecified E78.5 Hyperlipidemia, unspecified E03.9 Hypothyroidism, unspecified Z12.31 Encntr screen mammogram for malignant neoplasm of breast Office Visit 02/04/2016 4:00p [facility] Office Zee I10 Essential ( primary) Alana, [employer] hypertension R73.01 Impaired fasting glucose M06.9 Rheumatoid arthritis, unspecified E66.09 Other obesity due to excess calories Office Visit 08/12/2015 4:00p [facility] Office Kelsi Nielsen, I10 Essential (primary) M.D. hypertension R73.01 Impaired fasting glucose M06.9 Rheumatoid arthritis, unspecified Z12.31 Encntr screen mammogram for malignant neoplasm of breast Z23 Encounter for immunization E66.09 Other obesity due to excess calories Plan of Treatment Future Appointment(s):06/26/2019 8:15 am - Kelsi Nielsen M.D. at [facility]04/25/2019 8:00 am - Kelsi Nielsen M.D. at [facility]07/04/2019 9: 20 am - Kelsi Nielsen M.D. at [facility]04/19/2019 - Iesha Gaffney, NPR30.0 DysuriaNew Labs:Ua - Non Micro (Fma), Ordered: 04/19/19Comments:No signs of infection. Likely from the medication.E11.9 Type 2 diabetes mellitus without complicationsComments:Ok to stop the new medication; try the metformin long-acting and follow-up with Dr. Nielsen.AllNew Medication:Metformin HCL ER 500 mg - start with 1 tab daily for 1 week then 1 tab twice a day ongoingComments:1. Patient has been queried about patient's goals/preferences and functional/lifestyle goals at relevant visits. If relevant, describe: Has been discussed, noted above2. Treatment goals as explainedto the patient: see above3. Are there barriers to meeting treatment goals? Yes If Yes, please describe: Barriers include possible insurance limits, disease process, and difficulty with lifestyle changes4. Self-Management goals as described to the patient: Yes, see above As always, we strongly encourage a healthy diet and making physical activity a part of your every day life. If you have questions about how or where to start, please contact the office.
[2019-06-16 07:33] VITALS: BP 154/92
[2019-06-16] MEDS ORDERED: Ciprofloxacin TAB* 500 MG ONE (08:31)
--- NOTE | 2019-06-16 08:38 | UC ---
Complaint Female HPI - HPI Summary HPI Summary: ONSET LAST NIGHT OF DYSURIA, FREQUENCY AND URGENCY. DENIES FEVER, NAUSEA, BACK PAIN. - History Of Current Complaint Chief Complaint: UCGU Stated Complaint: URINARY ISSUE Time Seen by Provider: 06/16/19 07:25 Hx Obtained From: Patient Onset/Duration: Gradual Onset, Lasting Hours, Still Present Severity Initially: Mild Severity Currently: Mild Pain Intensity: 0 Pain Scale Used: 0-10 Numeric Character: Sharp, Burning Aggravating Factor(s): Urination Alleviating Factor(s): Nothing Associated Signs And Symptoms: Positive: Negative - Allergies/Home Medications Allergies/Adverse Reactions: Allergies Allergy/AdvReac Type Severity Reaction Status Date / Time No Known Allergies Allergy Verified 06/16/19 07:33 Home Medications: Home Medications Metformin HCl [Metformin HCl ER] 500 mg PO BID 06/16/19 [History Confirmed 06/16] PMH/Surg Hx/FS Hx/Imm Hx - Additional Past Medical History Additional PMH: RA Endocrine History: Hypothyroidism Cardiovascular History: Hypertension - Surgical History Surgical History: Yes Surgery Procedure, Year, and Place: total hysterectomy; 2 c-sections - Family History Known Family History: Positive: Cardiac Disease, Hypertension, Other - dementia rheumatoid arthritis - Social History Alcohol Use: Rare Substance Use Type: None Smoking Status (MU): Never Smoked Tobacco Review of Systems All Other Systems Reviewed And Are Negative: Yes Constitutional: Positive: Negative Respiratory: Positive: Negative Cardiovascular: Positive: Negative Gastrointestinal: Positive: Abdominal Pain Genitourinary: Positive: Dysuria, Frequency, Urgency Physical Exam Triage Information Reviewed: Yes Appearance: Well-Appearing, No Pain Distress, Well-Nourished Vital Signs: Initial Vital Signs Temp 98 F 06/16/19 07:27 Pulse 91 06/16/19 07:27 Resp 16 06/16/19 07:27 BP 154/92 06/16/19 07:27 Pulse Ox 100 06/16/19 07:27 Laboratory Tests 06/16/19 07:47 POC Urine Color Yellow POC Urine Clarity Cloudy POC Urine pH 5.5 POC Ur Specif [place] 1.025 POC Urine Protein 1+ A POC Ur Glucose (UA) Negative POC Urine Ketones Negative POC Urine Blood 3+ A POC Urine Nitrite Negative POC Urine Bilirubin Negative POC Urine Urobilinogen 0.2 POC U Leukocyte Esteras 1+ A Vital Signs Reviewed: Yes Eyes: Positive: Conjunctiva Clear ENT: Positive: Hearing grossly normal Neck: Positive: Supple Respiratory: Positive: No respiratory distress, No accessory muscle use Cardiovascular: Positive: Pulses Normal Abdomen Description: Positive: Soft. Negative: CVA Tenderness (R), CVA Tenderness (L), Distended, Guarding Musculoskeletal: Positive: No Edema Neurological: Positive: Alert Psychological: Positive: Age Appropriate Behavior Skin: Negative: Rashes Complaint Female Dx - Differential Dx/Diagnosis Provider Diagnosis: UTI (urinary tract infection) Discharge ED - Sign-Out/Discharge Documenting (check all that apply): Patient Departure All imaging exams completed and their final reports reviewed: No Studies - Discharge Plan Condition: Stable Disposition: HOME Prescriptions: Ciprofloxacin TAB* [Cipro 500 MG TAB*] 500 mg PO BID #9 tab Patient Education Materials: Urinary Tract Infection in Women (ED) Referrals: Kelsi Nielsen MD [Primary Care Provider] - If Needed - Billing Disposition and Condition Condition: STABLE Disposition: Home
--- NOTE | 2019-06-18 08:23 | ED ---
Progress - Progress Note Progress Note: Urine culture preliminary report reviewed Escherichia coli more than 100,000 CFU/mL Patient currently on ciprofloxacin No change in plan, await final sensitivity reports Course/Dx - Diagnoses Provider Diagnoses: UTI (urinary tract infection) Discharge ED - Sign-Out/Discharge Documenting (check all that apply): Post-Discharge Follow Up All imaging exams completed and their final reports reviewed: No Studies - Discharge Plan Condition: Stable Disposition: HOME Prescriptions: Ciprofloxacin TAB* [Cipro 500 MG TAB*] 500 mg PO BID #9 tab Patient Education Materials: Urinary Tract Infection in Women (ED) Referrals: Kelsi Nielsen MD [Primary Care Provider] - If Needed - Billing Disposition and Condition Condition: STABLE Disposition: Home
== END 2019-06-16 08:35 | disposition home or self-care (01) ==
LOC: UCEAST 07:16
DX: N39.0 Urinary tract infection, site not specified (principal); E03.9 Hypothyroidism, unspecified; I10 Essential (primary) hypertension
CPT/HCPCS: 81003; 87077; 87086; 87186; 99212; A9270-GY; G0463